=== PATIENT | female | born 1960 | race African-American/Black ===

== ENCOUNTER 2017-04-18 07:44 | Outpatient (CLI) | payer MEDICARE | END 2017-04-18 07:45 | disposition home or self-care (01) | LOC: BICULT 07:44 | PROVIDERS: ATTEND Nurse Practitioner Family | DX: R10.32 Left lower quadrant pain (principal); Z90.49 Acquired absence of other specified parts of digestive tract | CPT/HCPCS: 76700 ==

== ENCOUNTER 2017-07-19 18:46 | Emergency (ER) | payer MEDICARE ==
[2017-07-19] MEDS ORDERED: Acetaminophen 500 MG TAB ONE (21:32)
[2017-07-19] MEDS ORDERED: Ketorolac Tromethamine 30 MG/ML VIAL ONE (21:32)
== END 2017-07-19 21:58 | disposition home or self-care (01) ==
LOC: ERS 18:46
DX: M79.642 Pain in left hand (principal); M79.641 Pain in right hand; M79.672 Pain in left foot; M79.671 Pain in right foot; E78.5 Hyperlipidemia, unspecified; I10 Essential (primary) hypertension; F41.9 Anxiety disorder, unspecified; F32.9 Major depressive disorder, single episode, unspecified
CPT/HCPCS: 96372; J1885

== ENCOUNTER 2018-01-16 15:46 | Emergency (ER) | payer MEDICARE ==
[2018-01-16 16:19] LABS: Bilirubin Negative (Negative); Blood, Urine Negative (Negative); Clarity CLEAR (Clear); Glucose, Urine (Dipstick) Negative (Negative); Leukocyte Negative (Negative); Nitrite Negative (Negative); Protein, Urine (Dipstick) Negative (Neg-Trace); Specific Gravity, Urine 1.007 (1.002-1.036); pH, Urine 6.5 (5.0-9.0)
[2018-01-16 16:56] LABS: #Eosinphils 0.1 thou/uL (0.0-0.7); #Lymphocytes 2.6 thou/uL (1.20-3.40); #Monocytes 0.4 thou/uL (0.11-0.59); #Neutrophils 2.3 thou/uL (1.40-6.50); %Basophils 0.5 % (0.0-1.0); %Eosinophils 2.2 % (0.0-10.0); %Lymphocytes 47.5 % (21.0-51.0); %Monocytes 7.7 % (0.0-10.0); %Neutrophils 42.2 % (42.0-75.0); Hemoglobin 13.4 g/dL (12.0-16.0); Mean Corpuscular HGB CONC 33.4 g/dL (32.0-36.0); Mean Corpuscular Hemoglobin 27.7 pg (27.0-31.0); Mean Platelet Volume 8.5 fL (7.4-10.4); Platelet Count 229 thou/uL (130-400); RBC Distribution Width 12.5 % (11.5-14.5); Red Blood Cell (RBC) Count 4.82 mill/uL (4.20-5.40); White Blood Cell (WBC) Count 5.5 thou/uL (4.8-10.8)
[2018-01-16] MEDS ORDERED: Ketorolac Tromethamine 30 MG/ML VIAL ONE (17:16)
[2018-01-16 17:19] LABS: ALT (SGPT) 14 U/L (8-55); AST (SGOT) 18 U/L (5-34); Albumin 4.1 g/dL (3.5-5.0); Alkaline Phosphatase 93 U/L (40-150); Anion Gap 14 mmol/L (10-20); BUN (Urea Nitrogen) 16 mg/dL (9.8-20.1); Bilirubin, Total 0.3 mg/dL (0.2-1.2); Calc. Creatinine Clearance 0 mL/min (70-130); Calcium 9.5 mg/dL (7.8-10.44); Carbon Dioxide 24 mmol/L (22-29); Chloride 106 mmol/L (98-107); Estimated GFR-MDRD Greater than 90; Globulin 2.9 g/dL (2.4-3.5); Glucose 96 mg/dL (70-105); Potassium 3.6 mmol/L (3.5-5.1); Sodium 140 mmol/L (136-145)
--- NOTE | 2018-01-16 18:54 | CT ---
CT ABDOMEN AND PELVIS 01/16/18 COMPARISON: None. HISTORY: Abdominal pain, abdominal bloating, left sided flank pain. TECHNIQUE: Axial CT imaging at 5 mm intervals through abdomen/pelvis without contrast. Coronal reformatted imagi ng obtained. FINDINGS: The lack of contrast media limits assessment of the viscera, bowel, vascular structures and for lymph adenopathy. The imaged lung bases are unremarkable. No free intraperitoneal air or fluid is noted. Clips are note d in the right upper quadrant, evidence of prior cholecystectomy. Limited assessment of liver, spleen , pancreas, adrenal glands, and kidneys are unremarkable. Sigmoid and descending colonic diverticulosis noted with no evidence for diverticulitis. The appendix is visualized and appears within normal limits. There are scattered atherosclerotic calc ification of the abdominal aorta. Review of the osseous structures demonstrates multilevel lower lumbar spine degenerative change, prim arily affecting the facet joints bilaterally. No worrisome lytic or blastic bone lesion. IMPRESSION: No evidence for obstructive uropathy, bowel obstruction, or free intraperitoneal air. POS: PAUL
== END 2018-01-16 18:30 | disposition home or self-care (01) ==
LOC: ERS 15:46
DX: R10.9 Unspecified abdominal pain (principal); E78.5 Hyperlipidemia, unspecified; I10 Essential (primary) hypertension; M19.90 Unspecified osteoarthritis, unspecified site; F41.9 Anxiety disorder, unspecified; F32.9 Major depressive disorder, single episode, unspecified; E11.9 Type 2 diabetes mellitus without complications; Z79.84 Long term (current) use of oral hypoglycemic drugs
CPT/HCPCS: 36415; 74176; 80053; 81003; 83690; 85025; 96372; J1885

== ENCOUNTER 2018-02-06 09:07 | Emergency (ER) | payer MEDICARE ==
[2018-02-06 09:43] LABS: Bilirubin Negative (Negative); Blood, Urine Negative (Negative); Clarity CLEAR (Clear); Glucose, Urine (Dipstick) Negative (Negative); Leukocyte Trace (Negative); Nitrite Negative (Negative); Protein, Urine (Dipstick) Negative (Neg-Trace); Specific Gravity, Urine 1.005 (1.002-1.036); Urobilinogen 0.2 mg/dL (0.2-1.0); pH, Urine 5.5 (5.0-9.0)
[2018-02-06 09:45] LABS: Bacteria/HPF None Seen HPF (None Seen); Hyaline Casts/LPF 0-3 HYALINE CAST LPF (0-3 Hyaline); RBC/HPF 0-3 HPF (0-3); Squamous Epithelial 0-3 HPF (0-3); WBC/HPF 0-3 HPF (0-3)
[2018-02-06] MEDS ORDERED: Morphine 10 MG/ML VIAL ONE (10:13)
== END 2018-02-06 11:10 | disposition home or self-care (01) ==
LOC: ERS 09:07
DX: M54.5 Low back pain (principal); E78.5 Hyperlipidemia, unspecified; I10 Essential (primary) hypertension; E11.9 Type 2 diabetes mellitus without complications; F41.9 Anxiety disorder, unspecified; F32.9 Major depressive disorder, single episode, unspecified; Z79.84 Long term (current) use of oral hypoglycemic drugs
CPT/HCPCS: 81003; 81015; 96372; J2270

== ENCOUNTER 2018-02-09 06:09 | Day surgery (SDC) | payer MEDICARE ==
[2018-02-08 08:36] VITALS: BMI 41.5
--- NOTE | 2018-02-09 03:44 | HP ---
HISTORY OF PRESENT ILLNESS: Aleja Morley is a very pleasant 57-year-old female, referred to me for evaluation of positive fecal immunochemical testing. The patient has no specific GI symptoms. The patient has no evidence of hematochezia or melena. Her bowel movements are fairly irregular. She does have constipation off and on to certain foods. The patient comes in for colonoscopy because of positive fecal immunochemical testing. ALLERGIES: NONE. SOCIAL HISTORY: The patient does not smoke or drink alcohol. MEDICAL ILLNESSES: 1. Obesity. 2. Diabetes. 3. Hypertension. 4. Chronic acid reflux. 5. Depression. 6. Hyperlipidemia. 7. Polyneuropathy. 8. Seasonal allergies. SURGERIES: , cholecystectomy, and foot surgery. PHYSICAL EXAMINATION: VITAL SIGNS: Her weight is 264 pounds. Pulse is 72, blood pressure 130/78. HEENT: Conjunctivae clear. CARDIOVASCULAR SYSTEM: First and second heart sounds heard. LUNGS: Clear to auscultation. ABDOMEN: Soft. No organomegaly. No tenderness. No masses. EXTREMITIES: No edema. ADMITTING DIAGNOSIS: A 57-year-old female with positive fecal immunochemical testing. PLAN: Colonoscopy. Job ID: [id number]
[2018-02-09] MEDS ORDERED: Lidocaine 1% PF 5 ML VIAL ONE (07:43)
[2018-02-09] MEDS ORDERED: PROPOFOL 200 MG/20 ML VIAL ONE (07:43)
--- NOTE | 2018-02-09 15:51 | OP ---
DATE OF PROCEDURE: 02/09/2018 PREOPERATIVE DIAGNOSIS: A 57-year-old female with positive fecal immunochemical testing. The patient came for the colonoscopy. POSTOPERATIVE DIAGNOSES: 1. Left-sided diverticular disease with occasional diverticula over the proximal colon. 2. Hemorrhoids. OPERATIVE PROCEDURE: Colonoscopy. DESCRIPTION OF PROCEDURE: The patient was placed on her left lateral position and was given sedation by Anesthesia Department. A rectal exam was done before the scope was advanced into the rectum. No lesions felt on rectal exam. Pentax video colonoscope was introduced into the rectum and advanced all the way to the cecum. The patient did have some small amount of fecal material of left colon. Overall , the prep was good. The mucosa appeared normal throughout the colon. The ileocecal area, cecum, no pathology seen. Withdrawal of scope from cecum, ascending colon, hepatic flexure, no pathology seen. The proximal transverse colon, no pathology seen. The patient had occasional diverticula over the right colon.. This splenic flexure, descending colon, sigmoid colon showed scattered diverticula. Retroflexion of the scope in the rectum showed hemorrhoids. DISCHARGE PLANNING: A 57-year-old female, who came for colonoscopy because of positive FIT. Colonoscopy showed scattered diverticula and also hemorrhoids. DISCHARGE RECOMMENDATIONS: 1. The patient is advised to call me, if she has abdominal pain, fever, rectal bleeding. 2. High-fiber diet. 3. To come back to clinic in two weeks. Job ID: [id number] [facility] INSANEPeewee
== END 2018-02-09 08:53 | disposition home or self-care (01) ==
LOC: SDC 06:09
PROVIDERS: ATTEND Internal Medicine Gastroenterology
PROC: 0DJD8ZZ Inspection of Lower Intestinal Tract, Via Natural or Artificial Opening Endoscopic (ICD-10-PCS; principal; 2018-02-09)
DX: R19.5 Other fecal abnormalities (principal); K57.30 Diverticulosis of large intestine without perforation or abscess without bleeding; K64.9 Unspecified hemorrhoids; E66.9 Obesity, unspecified; I10 Essential (primary) hypertension; K21.9 Gastro-esophageal reflux disease without esophagitis; F32.9 Major depressive disorder, single episode, unspecified; E78.5 Hyperlipidemia, unspecified; E11.42 Type 2 diabetes mellitus with diabetic polyneuropathy; Z68.41 Body mass index [BMI] 40.0-44.9, adult
CPT/HCPCS: J2001; J2704

== ENCOUNTER 2019-01-22 12:47 | Outpatient (CLI) | payer MEDICARE ==
--- NOTE | 2019-01-22 13:21 | MMO ---
Bilateral MAMMO Bilat Screen [facility]. CLINICAL HISTORY: Patient is 58 years old and is seen for screening. The patient has no family history of breast cancer. The patient has no personal history of cancer. VIEWS: The views performed were: bilateral craniocaudal with tomosynthesis; bilateral mediolateral oblique; and bilateral mediolateral oblique with tomosynthesis. FILMS COMPARED: The present examination has been compared to prior imaging studies performed at [facility] on 10/07/2011, 11/13/2012, 05/01/2015 and 08/29/2016. This study has been interpreted with the assistance of computer-aided detection. MAMMOGRAM FINDINGS: There are scattered fibroglandular densities. There are stable benign appearing calcifications seen in both breasts. There are no suspicious masses, suspicious calcifications, or new areas of architectural distortion. IMPRESSION: THERE IS NO MAMMOGRAPHIC EVIDENCE OF MALIGNANCY. A ROUTINE FOLLOW-UP MAMMOGRAM IN 1 YEAR IS RECOMMENDED. THE RESULTS OF THIS EXAM WERE SENT TO THE PATIENT. ACR BI-RADS Category 2 - Benign finding MAMMOGRAPHY NOTE: 1. A negative mammogram report should not delay a biopsy if a dominant of clinically suspicious mass is present. 2. Approximately 10% to 15% of breast cancers are not detected by mammography. 3. Adenosis and dense breasts may obscure an underlying neoplasm. Reported by: TORITO CARDENAS MD Electonically Signed: [id number]
== END 2019-01-22 12:48 | disposition home or self-care (01) ==
LOC: BICMAMMO 12:47
PROVIDERS: ATTEND Nurse Practitioner Family
DX: Z12.31 Encounter for screening mammogram for malignant neoplasm of breast (principal)
CPT/HCPCS: 77063; 77067

== ENCOUNTER 2019-06-15 11:07 | Emergency (ER) | payer MEDICARE | END 2019-06-15 13:08 | disposition home or self-care (01) | LOC: ERS 11:07 | DX: L02.212 Cutaneous abscess of back [any part, except buttock and flank] (principal); F41.9 Anxiety disorder, unspecified; F32.9 Major depressive disorder, single episode, unspecified; M19.90 Unspecified osteoarthritis, unspecified site; E11.9 Type 2 diabetes mellitus without complications; E78.5 Hyperlipidemia, unspecified; E78.00 Pure hypercholesterolemia, unspecified | CPT/HCPCS: 99282 ==

== ENCOUNTER 2019-06-20 09:14 | Day surgery (SDC) | payer MEDICARE ==
[2019-06-20] MEDS ORDERED: Ondansetron PF 4 MG/2 ML Vial ONE ×2 (09:51→11:12)
[2019-06-20] MEDS ORDERED: Cefepime 2 GM VIAL ONE (09:51)
[2019-06-20] MEDS ORDERED: Morphine 4 MG/ML VIAL ONE (09:51)
[2019-06-20 10:54] LABS: ALT (SGPT) 14 U/L (8-55); AST (SGOT) 15 U/L (5-34); Albumin 4.4 g/dL (3.5-5.0); Alkaline Phosphatase 100 U/L (40-110); Anion Gap 15 mmol/L (10-20); BUN (Urea Nitrogen) 13 mg/dL (9.8-20.1); Bilirubin, Total 0.3 mg/dL (0.2-1.2); Calc. Creatinine Clearance 0 mL/min (70-130); Carbon Dioxide 23 mmol/L (22-29); Chloride 104 mmol/L (98-107); Estimated GFR-MDRD 90; Globulin 3.3 g/dL (2.4-3.5); Glucose 111 mg/dL (70-105); Potassium 4.1 mmol/L (3.5-5.1); Protein, Total 7.7 g/dL (6.0-8.3); Sodium 138 mmol/L (136-145)
[2019-06-20 11:04] LABS: #Eosinphils 0.2 thou/uL (0.0-0.7); #Lymphocytes 2.5 thou/uL (1.20-3.40); #Monocytes 0.9 thou/uL (0.11-0.59); #Neutrophils 6.4 thou/uL (1.40-6.50); %Basophils 0.5 % (0.0-1.0); %Eosinophils 1.7 % (0.0-10.0); %Lymphocytes 24.8 % (21.0-51.0); %Monocytes 8.9 % (0.0-10.0); %Neutrophils 64.1 % (42.0-75.0); Eosinophils 4 % (0-10); Hemoglobin 14.3 g/dL (12.0-16.0); Lymphocytes 27 % (21-51); MDiff Complete? YES; Mean Corpuscular HGB CONC 31.8 g/dL (32.0-36.0); Mean Corpuscular Hemoglobin 27.1 pg (27.0-31.0); Mean Corpuscular Volume 85.2 fL (78.0-98.0); Mean Platelet Volume 9.2 fL (7.4-10.4); Monocytes 9 % (0-10); Neutrophil 59 % (42-75); Platelet Count 252 thou/uL (130-400); Platelet Morphology Comment Appears Adequate; RBC Distribution Width 12.9 % (11.5-14.5); Reactive Lymphocytes 1 % (0-10); Red Blood Cell (RBC) Count 5.29 mill/uL (4.20-5.40)
[2019-06-20] MEDS ORDERED: Rocuronium Bromide 10 MG/ML (10ML VIAL) ONE (11:12)
[2019-06-20] MEDS ORDERED: PROPOFOL 200 MG/20 ML VIAL ONE (11:12)
[2019-06-20] MEDS ORDERED: Succinylcholine Chloride 20 MG/ML 10 ml SYRINGE FS ONE (11:12)
[2019-06-20] MEDS ORDERED: Dexamethasone 20 MG/5 ML VIAL ONE (11:12)
[2019-06-20] MEDS ORDERED: Ketorolac Tromethamine 30 MG/ML VIAL ONE (11:12)
[2019-06-20] MEDS ORDERED: Lidocaine 1% PF 5 ML VIAL ONE (11:12)
[2019-06-20] MEDS ORDERED: Glycopyrrolate 0.2 MG/ML 5 ML SYRINGE ONE (11:12)
[2019-06-20] MEDS ORDERED: Vancomycin 1 GM/200 ML BAG ONE (13:06)
--- NOTE | 2019-06-20 13:21 | HP ---
HISTORY OF PRESENT ILLNESS: This is a 58-year-old morbidly obese, woman, who presented to the emergency department today with persistent upper back pain associated with swelling. The patient had a preexisting "fat tumor," which had been present for about 2 to 3 years. She presented to the emergency department 5 days ago, complaining of insidious onset upper back pain associated with this lump which had gotten bigger over 2 to 3 days prior to presentation. She was placed on antibiotic for presumptive abscess. The lump had persisted and in fact, it has gotten larger and more painful; as a result, the patient presented to the emergency department. She denies any fevers or chills. PAST MEDICAL HISTORY: Pertinent for morbid obesity, hyperlipidemia, essential hypertension, type 2 diabetes mellitus, and degenerative arthritic disease. PAST SURGICAL HISTORY: Pertinent for colonoscopy, x2, cholecystectomy, and right foot surgery. SOCIAL HISTORY: The patient is , lives at home with her . She denies any cigarette smoking, ethanol, or illicit drug abuse. FAMILY HISTORY: Notable for both parents with heart disease, other family members with essential hypertension and diabetes mellitus. She denies any family history of cancer. PRE-HOSPITALIZATION MEDICATIONS: Include: 1. Amlodipine 10 mg p.o. daily. 2. Furosemide 40 mg p.o. daily. 3. Metformin 500 mg p.o. b.i.d. 4. [place]-3 fatty acids 1000 mg p.o. daily. 5. Omeprazole 40 mg p.o. daily. 6. Pravastatin 40 mg p.o. daily. 7. Bqwn-ohu-afckyau analgesics. 8. She was recently placed on Bactrim. ALLERGIES: THE PATIENT DENIES ANY KNOWN DRUG ALLERGIES. REVIEW OF SYSTEMS: Ten-point review of systems essentially unremarkable, except as stated in Past Medical History and Chief Complaint. PHYSICAL EXAMINATION: GENERAL: This reveals a 58-year-old obese woman, who is otherwise coherent, interactive, appears stated age. The patient is alert and oriented x3. Appears to be in no acute distress at the time of my evaluation. VITAL SIGNS: Her vital signs include blood pressure 131/83, pulse is 97, respiratory rate is 18, and temperature is 98 degrees Fahrenheit. HEENT: Reveals pupils are equal, round, reactive to light and accommodation. HEART: Reveals regular rate and rhythm. No murmurs or gallops auscultated. LUNGS: Clear to auscultation bilaterally. Her breathing is regular and nonlabored. ABDOMEN: Soft and obese, but nontender to palpation. Liver and spleen, nonpalpable below costal margin. MUSCULOSKELETAL: Reveals 5/5 muscle strength in bilateral upper and lower extremities. Upper back, there is a 10 x 8 x approximately 4 cm firm mass with 2 punctate areas. No active drainage over the dome. This mass is tender to palpation and appears to be fixed. NEUROLOGIC: Reveals no focal deficits present. IMAGING STUDIES: An MRI of soft tissue was obtained of the back, which is remarkable for large subcutaneous cystic mass with inflammatory fat. This does not appear to extend into the muscle. IMPRESSION: Likely, an infected large sebaceous cyst. RECOMMENDATIONS: Excision of large infected sebaceous cyst of the back. I suspect that incision and drainage will be inappropriate at this time as this is likely to lead to recurrence. Above findings and plan have been discussed with the patient in the presence of her nurse. I have advised the patient of the risks and benefits of the proposed surgery to include, but not limited to bleeding, infection, recurrence, and abnormal scarring. She indicates understanding of information given. I have answered their questions. Job ID: [id number]
--- NOTE | 2019-06-20 14:33 | MRI ---
MRI OF THE THORACIC SPINE WITHOUT AND WITH CONTRAST: 06/20/19 COMPARISON: None. HISTORY: Swelling in the upper back. Patient was told it was fluid and given an antibiotic. Recent pain and pr essure as well as headache. TECHNIQUE: Multiplanar and multisequence MRI images were obtained of the thoracic spine without and with IV cont rast. FINDINGS: In the subcutaneous fat of the back at the cervicothoracic junction, there is a 4 cm well circumscrib ed focus of high T2 signal. This demonstrates rim enhancement and is most consistent with an abscess. Edema is seen within the fat surrounding this abscess. This does not extend deep to the subcutaneous fat and the edema and enhancement spares the paraspinal muscles. This does not extend into the centr al canal. The vertebral bodies demonstrate normal height and alignment without fracture or subluxation. The vis ualized cord demonstrates normal signal throughout. There is skin thickening overlying the fluid vitaliy ection. No obvious narrowing of the neural foramina or central canal is seen in the visualized spine. IMPRESSION: There is a soft tissue abscess in the upper back. POS: ABBIEA
[2019-06-20] MEDS ORDERED: Lidocaine 2% Jelly 5 ML TUBE ONE (16:40)
[2019-06-20] MEDS ORDERED: Fentanyl 100 MCG/2 ML VIAL ONE ×3 (16:40→19:07)
--- NOTE | 2019-06-20 18:38 | OP ---
DATE OF PROCEDURE: 06/20/2019 PREOPERATIVE DIAGNOSIS: A 10 x 8 x 4 cm upper back infected sebaceous cyst. POSTOPERATIVE DIAGNOSIS: A 10 x 8 x 4 cm upper back infected sebaceous cyst. OPERATION PERFORMED: Excision of infected upper back sebaceous cyst. ANESTHESIA: General endotracheal. ESTIMATED BLOOD LOSS: 50 mL. FLUIDS GIVEN: 400 mL of crystalloids. COUNTS: Sponge and instrument counts were verified as correct x2. COMPLICATIONS: None apparent at the time of operation. INDICATIONS FOR OPERATION: A 58-year-old morbidly obese woman with history of type 2 diabetes mellitus. The patient presented with swelling upper back, associated with pain. Clinical and radiographic examination was consistent with acute infected sebaceous cyst. The patient was brought to the operating room for excision. Findings are consistent with large upper back sebaceous cyst, which extends to but not involving the muscle. Part of the fascia was involved and was debrided along with the sebaceous cyst. DESCRIPTION OF PROCEDURE: Informed consent was obtained from the patient and was brought to the operating room and placed in supine position. Following general anesthesia, the patient was placed in a prone position. The back was sterilely, widely prepped and draped in usual fashion. Elliptical incision was made in an oblique fashion over the dome of the sebaceous cyst. This was accomplished using a 10 scalpel. The sebaceous cyst was then circumferentially dissected down to the fascia and excised including a small segment of fascia right underneath the sebaceous cyst. Bleeding points were controlled using cautery. This cyst was passed off the operative field for transmission to Pathology. The resultant large wound cavity was pulse lavaged with 3 L of sterile saline. A quarter-inch Trina drain was placed in the wound bed and allowed to exit through the most lateral aspect of the incision. Deep tissues were approximated using interrupted sutures of 0 Vicryl. Skin incision was closed using mal. Sterile dressings were applied. The patient tolerated this operation without any apparent complication and was returned to recovery room in satisfactory condition. Job ID: [id number]
[2019-06-20] MEDS ORDERED: HYDROcodone/Acetaminophen 5/325 mg Tablet ONE (19:49)
== END 2019-06-20 20:10 | disposition home or self-care (01) ==
LOC: ERS 09:14 → SDC/OP 13:33
PROVIDERS: ATTEND Surgery
PROC: 0HB6XZZ Excision of Back Skin, External Approach (ICD-10-PCS; principal; 2019-06-20)
DX: L72.0 Epidermal cyst (principal); E11.9 Type 2 diabetes mellitus without complications; E78.5 Hyperlipidemia, unspecified; I10 Essential (primary) hypertension; M19.90 Unspecified osteoarthritis, unspecified site; E66.01 Morbid (severe) obesity due to excess calories; Z79.84 Long term (current) use of oral hypoglycemic drugs; Z79.899 Other long term (current) drug therapy
CPT/HCPCS: 36416; 72157; 80053; 85025; 88304; 96361; 96365; 96366; 96367; 96375; J0692; J1100; J1885; J2001; J2270; J2405; J2704; J3010; J3370; J7030

== ENCOUNTER 2019-12-08 16:40 | Emergency (ER) | payer MEDICARE ==
[2019-12-08] MEDS ORDERED: Bacitracin 1 PK ONE (17:19)
== END 2019-12-08 17:23 | disposition home or self-care (01) ==
LOC: ERS 16:40
DX: T21.21XA Burn of second degree of chest wall, initial encounter (principal); E78.5 Hyperlipidemia, unspecified; I10 Essential (primary) hypertension; E11.9 Type 2 diabetes mellitus without complications; F41.9 Anxiety disorder, unspecified; F32.9 Major depressive disorder, single episode, unspecified; Z79.899 Other long term (current) drug therapy; X11.8XXA Contact with other hot tap-water, initial encounter
CPT/HCPCS: 99283

== ENCOUNTER 2020-05-26 10:41 | Outpatient (CLI) | payer MEDICARE | END 2020-05-26 10:42 | disposition home or self-care (01) | LOC: BICRAD 10:41 | PROVIDERS: ATTEND Podiatrist | DX: M79.672 Pain in left foot (principal); M19.072 Primary osteoarthritis, left ankle and foot ==

== ENCOUNTER 2020-09-10 08:05 | Outpatient (CLI) | payer MEDICARE | END 2020-09-10 08:06 | disposition home or self-care (01) | LOC: BICMRI 08:05 | PROVIDERS: ATTEND Orthopaedic Surgery | DX: M25.872 Other specified joint disorders, left ankle and foot (principal); M12.272 Villonodular synovitis (pigmented), left ankle and foot; M24.172 Other articular cartilage disorders, left ankle ==

== ENCOUNTER 2021-01-08 08:38 | Outpatient (CLI) | payer MEDICARE | END 2021-01-08 08:39 | disposition home or self-care (01) | LOC: BICMAMMO 08:38 | PROVIDERS: ATTEND Nurse Practitioner Family | DX: Z12.31 Encounter for screening mammogram for malignant neoplasm of breast (principal) | CPT/HCPCS: 77063; 77067 ==

== ENCOUNTER 2022-04-23 13:48 | Emergency (ER) | payer MEDICARE | END 2022-04-23 15:25 | disposition home or self-care (01) | LOC: ERS 13:48 | DX: B34.9 Viral infection, unspecified (principal); M25.572 Pain in left ankle and joints of left foot; E11.9 Type 2 diabetes mellitus without complications; E78.00 Pure hypercholesterolemia, unspecified; I10 Essential (primary) hypertension | CPT/HCPCS: 71045 ==

== ENCOUNTER 2023-03-02 12:34 | Emergency (ER) | payer MEDICARE ==
[2023-03-02 13:22] LABS: #Eosinphils 0.1 thou/uL (0.0-0.7); #Monocytes 0.4 thou/uL (0.11-0.59); #Neutrophils 2.5 thou/uL (1.40-6.50); %Basophils 0.7 % (0.0-1.0); %Eosinophils 2.6 % (0.0-10.0); %Lymphocytes 41.9 % (21.0-51.0); %Monocytes 8.1 % (0.0-10.0); %Neutrophils 46.5 % (42.0-75.0); Hemoglobin 13.2 g/dL (12.0-16.0); Mean Corpuscular HGB CONC 32.2 g/dL (32.0-36.0); Mean Corpuscular Hemoglobin 26.8 pg (27.0-31.0); Mean Corpuscular Volume 83.3 fl (78.0-98.0); Mean Platelet Volume 10.4 fL (7.4-10.4); Platelet Count 223 10x3/uL (130-400); RBC Distribution Width 14.1 % (11.5-14.5); Red Blood Cell (RBC) Count 4.92 mill/uL (4.20-5.40); White Blood Cell (WBC) Count 5.4 10x3/uL (4.8-10.8)
[2023-03-02 13:55] LABS: ALT (SGPT) 14 U/L (8-55); AST (SGOT) 16 U/L (5-34); Albumin 4.4 g/dL (3.4-4.8); Alkaline Phosphatase 72 U/L (40-110); Anion Gap 16 mmol/L (10-20); BUN (Urea Nitrogen) 15 mg/dL (9.8-20.1); Bilirubin, Total 0.3 mg/dL (0.2-1.2); Calc. Creatinine Clearance 0 mL/min (70-130); Calcium 9.7 mg/dL (7.8-10.44); Carbon Dioxide 22 mmol/L (23-31); Chloride 107 mmol/L (98-107); Estimated GFR 87; Globulin 2.8 g/dL (2.4-3.5); Glucose 134 mg/dL (80-115); Potassium 3.8 mmol/L (3.5-5.1); Protein, Total 7.2 g/dL (5.8-8.1); Sodium 141 mmol/L (136-145)
[2023-03-02] MEDS ORDERED: Morphine 4 MG/ML VIAL ONE (13:55)
[2023-03-02] MEDS ORDERED: Ondansetron PF 4 MG/2 ML Vial ONE (13:56)
[2023-03-02 14:04] LABS: PTT 27.5 sec (22.9-36.1)
== END 2023-03-02 16:35 | disposition home or self-care (01) ==
LOC: ERS 12:34
DX: S93.432A Sprain of tibiofibular ligament of left ankle, initial encounter (principal); L03.116 Cellulitis of left lower limb; E11.40 Type 2 diabetes mellitus with diabetic neuropathy, unspecified; I10 Essential (primary) hypertension; X58.XXXA Exposure to other specified factors, initial encounter
CPT/HCPCS: 29515; 80053; 85025; 85610; 85730; 86140; 93005; 96374; 96375; J2270; J2405

== ENCOUNTER 2023-03-29 08:34 | Outpatient (CLI) | payer MEDICARE | END 2023-03-29 08:35 | disposition home or self-care (01) | LOC: BICMRI 08:34 | PROVIDERS: ATTEND Podiatrist Foot & Ankle Surgery | DX: M84.375A Stress fracture, left foot, initial encounter for fracture (principal); M85.672 Other cyst of bone, left ankle and foot; S96.912A Strain of unspecified muscle and tendon at ankle and foot level, left foot, initial encounter; M19.072 Primary osteoarthritis, left ankle and foot; S93.492A Sprain of other ligament of left ankle, initial encounter; R60.0 Localized edema; M89.311 Hypertrophy of bone, right shoulder; M79.89 Other specified soft tissue disorders ==

== ENCOUNTER 2023-08-11 12:57 | Outpatient (CLI) | payer MEDICARE | END 2023-08-11 12:58 | disposition home or self-care (01) | LOC: BICMAMMO 12:57 | PROVIDERS: ATTEND Family Medicine | DX: Z12.31 Encounter for screening mammogram for malignant neoplasm of breast (principal) | CPT/HCPCS: 77063; 77067 ==